=== PATIENT | male | born 1955 | race Caucasian/White ===

== ENCOUNTER 2017-12-28 12:18 | Emergency (ER) | payer MEDICARE ==
[~2017-12-28] VITALS: Ht 185.4 cm; Wt 74.8 kg
[2017-12-28] MEDS ORDERED: ZANTAC150 MG ORAL (12:25)
[2017-12-28] MEDS ORDERED: [UNRECOGNIZED DRUG - OTHER] ORAL (12:25)
[2017-12-28] MEDS ORDERED: ANDROGEL1.25 GM TD (12:25)
[2017-12-28] MEDS ORDERED: [UNRECOGNIZED DRUG - OTHER] ORAL (12:25)
[2017-12-28] MEDS ORDERED: COMPLERA TABLE1 EACH ORAL (12:25)
[2017-12-28 12:36] VITALS: BP 132/91
[2017-12-28] MEDS ORDERED: ALBUTEROL SULF8.5 GM INH (12:41)
[2017-12-28] MEDS ORDERED: PROMETHAZINE-C118 M1 ORAL (12:41)
[2017-12-28 12:42] VITALS: BP 128/77
[2017-12-28] MEDS ORDERED: PREDNISONE20 MG ORAL (12:42)
--- NOTE | 2017-12-29 15:12 | Emergency Room Report ---
History of Present Illness General Chief Complaint: Upper Respiratory Illness Source: Patient Present Illness HPI 62 yo M presents to ED c/o cough times one week. Patient states cough is dry. Denies fevers or chills. Denies shortness of breath. Denies sick contacts or recent travel. History of HIV. States he is compliant with his medications. No other aggravating relieving factors. Denies any other associated symptoms Allergies: Coded Allergies: No Known Allergies (Unverified , 12/28/17) Patient History Past Medical History: none Past Surgical History: none Pertinent Family History: none Social History: Denies: smoking, alcohol use, drug use Immunizations: UTD Reviewed Nursing Documentation: PMH: Agreed; PSxH: Agreed Nursing Documentation-PMH Past Medical History: No History, Except For Hx Cardiac Problems: No - HIV Review of Systems All Other Systems: negative except mentioned in HPI Physical Exam Vital Signs Date Time Temp Pulse Resp B/P (MAP) Pulse Ox O2 Delivery O2 Flow Rate FiO2 12/28/17 12:20 97.9 102 18 132/91 94 Room Air 97.9 Sp02 EP Interpretation: reviewed, normal General Appearance: no apparent distress, alert, GCS 15, non-toxic Head: normocephalic, atraumatic Eyes: bilateral eye normal inspection, bilateral eye PERRL ENT: hearing grossly normal, normal pharynx, no angioedema, normal voice Neck: full range of motion, supple/symm/no masses Respiratory: chest non-tender, lungs clear, normal breath sounds, speaking full sentences Cardiovascular #1: regular rate, rhythm, no edema Cardiovascular #2: 2+ carotid (R), 2+ carotid (L), 2+ radial (R), 2+ radial (L) , 2+ dorsalis pedis (R), 2+ dorsalis pedis (L) Gastrointestinal: normal bowel sounds, non tender, soft, non-distended, no guarding, no rebound Rectal: deferred Genitourinary: normal inspection, no CVA tenderness Musculoskeletal: back normal, gait/station normal, normal range of motion, non- tender Neurologic: alert, oriented x3, responsive, motor strength/tone normal, sensory intact, speech normal Psychiatric: judgement/insight normal, memory normal, mood/affect normal, no suicidal/homicidal ideation Reflexes: 3+ bicep (R), 3+ bicep (L), 3+ tricep (R), 3+ tricep (L), 3+ knee (R) , 3+ knee (L) Skin: normal color, no rash, warm/dry, well hydrated Lymphatic: no adenopathy Medical Decision Making Diagnostic Impression: Primary Impression: Bronchitis ER Course Hospital Course 62 yo M presents with cough x 1 week Differential diagnoses include: URI, pharyngitis, otitis media, asthma Clinical course Patient placed on stretcher. After initial history, physical exam reveals a middle aged male in no acute distress. Bilateral TM unremarkable. No pharyngeal erythema. No tonsillar exudates. No lymphadenopathy. lungs clear. abdomen soft. Patient is afebrile, nontoxic. Vital stable. Unlikely pneumonia. Patient is compliant with his medications and viral load is likely low. Clinical presentation consistent with bronchitis. We'll discharge with cough medication, inhaler. Close follow-up with PMD Diagnosis - bronchitis Stable and discharged home with Rx Albuterol, prednisone, promethazine/codeine. Instructed to followup with PMD. Return to ED if symptoms recur or worsen Last Vital Signs Date Time Temp Pulse Resp B/P (MAP) Pulse Ox O2 Delivery O2 Flow Rate FiO2 12/28/17 12:42 97.9 97 18 128/77 99 Room Air 97.9 Status: improved Disposition: HOME, SELF-CARE Condition: Stable Scripts Prednisone* (PREDNISONE*) 20 Mg Tablet 40 MG ORAL DAILY, #10 TAB Prov: Zohaib Hurley MD 12/28/17 Codeine/Promethazine Hcl* (PROMETHAZINE-CODEINE SYRUP*) 118 Ml Syrup 5 ML ORAL Q6H PRN for For Cough, #118 ML 0 Refills Prov: Zohaib Hurley MD 12/28/17 Albuterol Sulfate* (ALBUTEROL SULFATE MDI*) 8.5 Gm Hfa.aer.ad 2 PUFF INH Q6H, #1 EA 0 Refills Prov: Zohaib Hurley MD 12/28/17 Referrals: NOT CHOSEN IPA/,REFERRING (PCP) Patient Instructions: Acute Bronchitis, Xivo-pl-Ydih Zohaib Hurley MD Dec 29, 2017 15:12
== END 2017-12-28 13:00 | disposition home or self-care (01) ==
LOC: EMR 12:57
DX: J40 Bronchitis, not specified as acute or chronic (principal)
CPT/HCPCS: 99283